=== PATIENT | female | born 1975 | race Caucasian/White ===

== ENCOUNTER 2017-01-06 11:53 | Emergency (ER) | payer SELFPAY ==
[~2017-01-06] VITALS: Ht 162.6 cm; Wt 73.5 kg
[~2017-01-06 11:53] MED LIST: ALPR1TAB2 PO; AZIT250T PO; DOCU50CA9 PO; FLUO20CA16 PO; HYDR-971 PO; OXYC-323 PO
--- NOTE | 2017-01-06 13:00 | EKG ---
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
[2017-01-06 13:25] LABS: BASO # 0.1 x10^3/uL (0.0-0.2); BASO % 1 % (0-3); EOS % 0 % (0-3); HEMATOCRIT 39.6 % (36.0-47.0); HEMOGLOBIN 13.4 g/dL (12.0-15.5); LYMPH # 3.5 x10^3/uL (1.0-4.8); LYMPH % 33 % (24-48); MEAN CORPUSCULAR HEMOGLOBIN 30 pg (25-35); MEAN CORPUSCULAR HGB CONC 34 g/dL (31-37); MEAN CORPUSCULAR VOLUME 90 fL (79-100); MONO % 8 % (0-9); NEUT % 58 % (31-73); PLATELET COUNT 261 x10^3/uL (140-400); RED BLOOD COUNT 4.41 x10^6/uL (3.50-5.40); RED CELL DISTRIBUTION WIDTH 14.2 % (11.5-14.5); WHITE BLOOD COUNT 10.6 x10^3/uL (4.0-11.0)
--- NOTE | 2017-01-06 13:34 | RAD ---
Indication shortness of breath and chest pain. A single view of the chest was obtained. Comparison is made to an examination 03/29/2016. The heart and pulmonary vessels appear normal. The lungs are clear. There is no pleural fluid or pneumothorax. Bony structures appear intact. A significant change when compared to the prior exam is not seen. IMPRESSION: No acute or focal process. No significant change
--- NOTE | 2017-01-06 13:38 | ED.ADGEN ---
Past Medical History Past Medical History: Anxiety, Depression, Other Additional Past Medical Histor: severe panic disorder Past Surgical History: , Hysterectomy, Other Additional Past Surgical Histo: cysts Alcohol Use: None Drug Use: None Adult General Chief Complaint Chief Complaint: HYPERVENTILATION HPI HPI Patient is a 41 year old woman, with a history of anxiety disorder, depression, who presents to the emergency department with complaint of shortness of breath, chest pain, and tingling of the hands and mouth. Patient states since began around 9:30 this morning, shortly after she woke up. She denies any preceding symptoms or triggering factors. States she took her daily Effexor without relief , does not take any other medications regular basis, denies any ingestions, any focal weakness, numbness, headache, vision changes, any nausea or vomiting. States his chest tightness across the anterior portion of her chest, denies any similar symptoms previously. No swelling extremities, recent travel or surgery, rashes, fevers or chills, no urinary or GI complaints, no history of DVT or PE in herself or family members. No history of cardiac disease in family. Review of Systems Review of Systems Constitutional: Denies fever or chills. [] Eyes: Denies change in visual acuity. [] HENT: Denies nasal congestion or sore throat. [] Respiratory: Denies cough, complaining of chest tightness and shortness of breath Cardiovascular: Denies chest pain or edema. [] GI: Denies abdominal pain, nausea, vomiting, bloody stools or diarrhea. [] : Denies dysuria. [] Musculoskeletal: Denies back pain or joint pain. [] Integument: Denies rash. [] Neurologic: Denies headache, focal weakness or sensory changes. [] Endocrine: Denies polyuria or polydipsia. [] Lymphatic: Denies swollen glands. [] Psychiatric: Denies depression complaining of some anxiety, feeling of hyperventilation. Current Medications Current Medications Current Medications Medications (Trade) Dose Ordered Sig/Bella Start Time Stop Time Status Last Admin Dose Admin Acetaminophen (Tylenol) 1,000 mg 1X ONCE 01/06/17 15:15 01/06/17 15:21 DC Alprazolam (Xanax) 0.5 mg 1X ONCE 01/06/17 16:15 01/06/17 16:16 DC 01/06/17 16:11 0.5 MG Lorazepam (Ativan) 0.5 mg 1X ONCE 01/06/17 13:30 01/06/17 13:31 DC 01/06/17 13:39 0.5 MG Allergies Allergies Allergies Coded Allergies Type Severity Reaction Last Updated Verified No Known Drug Allergies 04/19/15 No Physical Exam Physical Exam Constitutional: Well developed, well nourished, no acute distress, non-toxic appearance. Patient is noted to have mild shaking, appears anxious. [] HENT: Normocephalic, atraumatic, bilateral external ears normal, oropharynx moist, no oral exudates, nose normal. [] Eyes: PERRLA, EOMI, conjunctiva normal, no discharge. [] Neck: Normal range of motion, no tenderness, supple, no stridor. [] Cardiovascular:Heart rate regular rhythm, no murmur, S1, S2, rubs or gallops. [] Lungs & Thorax: Bilateral breath sounds clear to auscultation, no wheezing, rhonchi, rales. No chest or crepitus or tenderness. [] Abdomen: Bowel sounds normal, soft, no rebound, rigidity, no guarding no tenderness, no masses, no pulsatile masses. [] Skin: Warm, dry, no erythema, no rash. [] Back: No tenderness, no CVA tenderness. [] Extremities: No tenderness, no cyanosis, no clubbing, ROM intact, no edema. [] Neurologic: Alert and oriented X 3, normal motor function, normal sensory function, no focal deficits noted. [] Psychologic: Anxious, judgement normal.(] Current Patient Data Vital Signs Vital Signs Date Time Temp Pulse Resp B/P (MAP) Pulse Ox O2 Delivery O2 Flow Rate FiO2 01/06/17 16:12 81 20 150/92 (111) 98 Room Air 01/06/17 12:35 98.3 98.3 Lab Values Laboratory Tests Test 01/06/17 13:00 01/06/17 13:20 01/06/17 14:10 01/06/17 15:20 D-Dimer (Miguelina) 0.27 ug/mlFEU (0.00-0.50) White Blood Count 10.6 x10^3/uL (4.0-11.0) Red Blood Count 4.41 x10^6/uL (3.50-5.40) Hemoglobin 13.4 g/dL (12.0-15.5) Hematocrit 39.6 % (36.0-47.0) Mean Corpuscular Volume 90 fL (79-100) Mean Corpuscular Hemoglobin 30 pg (25-35) Mean Corpuscular Hemoglobin Concent 34 g/dL (31-37) Red Cell Distribution Width 14.2 % (11.5-14.5) Platelet Count 261 x10^3/uL (140-400) Neutrophils (%) (Auto) 58 % (31-73) Lymphocytes (%) (Auto) 33 % (24-48) Monocytes (%) (Auto) 8 % (0-9) Eosinophils (%) (Auto) 0 % (0-3) Basophils (%) (Auto) 1 % (0-3) Neutrophils # (Auto) 6.1 x10^3uL (1.8-7.7) Lymphocytes # (Auto) 3.5 x10^3/uL (1.0-4.8) Monocytes # (Auto) 0.8 x10^3/uL (0.0-1.1) Eosinophils # (Auto) 0.0 x10^3/uL (0.0-0.7) Basophils # (Auto) 0.1 x10^3/uL (0.0-0.2) Sodium Level 142 mmol/L (136-145) Potassium Level 4.1 mmol/L (3.5-5.1) Chloride Level 104 mmol/L (98-107) Carbon Dioxide Level 27 mmol/L (21-32) Anion Gap 11 (6-14) Blood Urea Nitrogen 8 mg/dL (7-20) Creatinine 0.7 mg/dL (0.6-1.0) Estimated GFR (Cockcroft-Gault) 91.3 Glucose Level 97 mg/dL (70-99) Calcium Level 9.3 mg/dL (8.5-10.1) Total Bilirubin 0.2 mg/dL (0.2-1.0) Direct Bilirubin < 0.1 mg/dL (0.0-0.2) Aspartate Amino Transferase (AST) 28 U/L (15-37) Alanine Aminotransferase (ALT) 27 U/L (14-59) Alkaline Phosphatase 121 U/L (46-116) H Troponin I Quantitative < 0.017 ng/mL (0.000-0.055) XT-Pvf-N-Type Natriuretic Peptide 57 pg/mL (0-124) Total Protein 7.8 g/dL (6.4-8.2) Albumin 3.8 g/dL (3.4-5.0) Urine Collection Type Unknown Urine Color Yellow Urine Clarity Clear Urine pH 8.5 Urine Specific [place] 1.015 Urine Protein 30 mg/dL (NEG-TRACE) Urine Glucose (UA) Negative mg/dL (NEG) Urine Ketones (Stick) Negative mg/dL (NEG) Urine Blood Negative (NEG) Urine Nitrite Negative (NEG) Urine Bilirubin Negative (NEG) Urine Urobilinogen Dipstick 1.0 mg/dL (0.2 mg/dL) Urine Leukocyte Esterase Negative (NEG) Urine RBC 6-10 /HPF (0-2) Urine WBC 1-4 /HPF (0-4) Urine Squamous Epithelial Cells Few /LPF Urine Bacteria 0 /HPF (0-FEW) Urine Mucus Slight /LPF Urine Opiates Screen Neg (NEG) Urine Methadone Screen Neg (NEG) Urine Barbiturates Neg (NEG) Urine Phencyclidine Screen Neg (NEG) Urine Amphetamine/Methamphetamine Neg (NEG) Urine Benzodiazepines Screen Pos (NEG) Urine Cocaine Screen Neg (NEG) Urine Cannabinoids Screen Pos (NEG) Urine Ethyl Alcohol Neg (NEG) POC Troponin I 0.00 ng/ml (<0.08) Laboratory Tests 01/06/17 13:20 Laboratory Tests 01/06/17 13:20 EKG EKG EC: Sinus rhythm, heart rate 90 beats/minute, upright axis, QTC of 479, CT 118, QRS of 96, mild baseline artifact noted, no ST elevations or depressions , no evidence of acute ST abnormalities. As interpreted by me. [] Radiology/Procedures Radiology/Procedures [][facility] [address] [place], [place] [id number] IMAGING REPORT Signed PATIENT: NAYE MASON ACCOUNT: [id number] : 1975 LOCATION: ER AGE: 41 SEX: F EXAM STATUS: REG ER ORD. PHYSICIAN: LUZMARIA SERVIN DO REASON: SOB PROCEDURE: PORTABLE CHEST 1V Indication shortness of breath and chest pain. A single view of the chest was obtained. Comparison is made to an examination 03/29/2016. The heart and pulmonary vessels appear normal. The lungs are clear. There is no pleural fluid or pneumothorax. Bony structures appear intact. A significant change when compared to the prior exam is not seen. IMPRESSION: No acute or focal process. No significant change DICTATED and SIGNED BY: JULIETA DELACRUZ MD DATE: 01/06/17 1327 CC: LUZMARIA SERVIN DO; UNKNOWN PCP NAME ~ Course & Med Decision Making Course & Med Decision Making Pertinent Labs and Imaging studies reviewed. (See chart for details) Perioral and hand paresthesias, noted a mildly tachycardic, oxygen saturation is 99-100% room air, respiratory rate is in the mid 20s. Patient agreeable to receiving imaging and laboratory studies, no concerning findings identified. Patient did receive Ativan 0.5 mg 1 IV, states she is feeling much better, and on reevaluation shaking has resolved. Patient states that she feels "beat up", I discussed with her the fact that her laboratory studies and imaging did not reveal any concerning medical causes for her symptoms, and she states that this may indeed be consistent with her anxiety. She denies any inciting factors again , any concerns for her mental health. She does have family at bedside in the ED. Patient requests something for anxiety at home, discussed with patient that we do not start new medications for anxiety in the ED, some musty managed by her primary care provider for affective control and management. She will his understanding, did receive an oral 0.5 mg Xanax times one in the ED, was instructed to follow-up with her primary care provider tomorrow, and return to the ED for any concerning symptoms as discussed. Patient ambulating without difficulty, with resolution of symptoms, at time of discharge home with family. Dragon Disclaimer Dragon Disclaimer This electronic medical record was generated, in whole or in part, using a voice recognition dictation system. Departure Impression: Primary Impression: Anxiety Disposition: 01 HOME, SELF-CARE Condition: IMPROVED LUZMARIA SERVIN DO Jan 06, 2017 13:38
[2017-01-06 13:39] LABS: ANION GAP 11 (6-14); BLOOD UREA NITROGEN 8 mg/dL (7-20); CALCIUM 9.3 mg/dL (8.5-10.1); CARBON DIOXIDE 27 mmol/L (21-32); CHLORIDE 104 mmol/L (98-107); CREATININE 0.7 mg/dL (0.6-1.0); GFR 91.3; GLUCOSE 97 mg/dL (70-99); POTASSIUM 4.1 mmol/L (3.5-5.1); SODIUM 142 mmol/L (136-145)
[2017-01-06 13:56] LABS: ALBUMIN 3.8 g/dL (3.4-5.0); ALK PHOS 121 U/L (46-116); ALT (SGPT) 27 U/L (14-59); AST (SGOT) 28 U/L (15-37); DIRECT BILIRUBIN < 0.1 mg/dL (0.0-0.2); TOTAL BILIRUBIN 0.2 mg/dL (0.2-1.0); TOTAL PROTEIN 7.8 g/dL (6.4-8.2)
[2017-01-06] MEDS ORDERED: ACETAMINOPHEN 325 MG TABLET. PO ONE (14:30)
[2017-01-06 14:40] LABS: BILIRUBIN,URINE NEGATIVE (NEG); GLUCOSE,URINE NEGATIVE (NEG); NITRITE,URINE NEGATIVE (NEG); PH,URINE 8.5; PROTEIN,URINE 30 mg/dL (NEG-TRACE)
[2017-01-06 14:47] LABS: BACTERIA,URINE 0 /HPF (0-FEW); BARBITURATES NEG (NEG); BENZODIAZEPINES POS (NEG); CANNABINOIDS POS (NEG); COCAINE NEG (NEG); METHADONE NEG (NEG); OPIATES NEG (NEG); PHENCYCLIDINE NEG (NEG); SQUAMOUS EPITHELIAL CELL,UR FEW /LPF
[2017-01-06] MEDS ORDERED: ACETAMINOPHEN 500 MG TABLET PO ONE (15:15)
[2017-01-06 16:12] VITALS: BP 150/92
[2017-01-06] MEDS ORDERED: ALPRAZolam 0.5 MG TABLET PO ONE (16:15)
== END 2017-01-06 16:27 | disposition home or self-care (01) ==
LOC: ER 11:53
DX: F41.0 Panic disorder [episodic paroxysmal anxiety] (principal); R06.02 Shortness of breath; R20.2 Paresthesia of skin; R06.4 Hyperventilation; R07.89 Other chest pain; R00.0 Tachycardia, unspecified; F32.9 Major depressive disorder, single episode, unspecified; Z90.710 Acquired absence of both cervix and uterus
CPT/HCPCS: 36415; 71010; 80048; 80076; 80307; 81001; 83880; 84484; 85027; 85379; 93005; 96374; 99285; J2060; G0479